=== PATIENT | female | born 1960 | race African-American/Black ===

== ENCOUNTER 2021-06-14 12:10 | Emergency (ER) | payer OTHER ==
[2021-06-14] MEDS ORDERED: IBUPROFEN 400 MG TABLET (FP) PO ONE ×2 (12:29→12:37)
[2021-06-14] MEDS ORDERED: LIDOCAINE 5% TOPICAL PATCH TP ONE (12:29)
[2021-06-14] MEDS ORDERED: LIDOCAINE 5% TOPICAL PATCH ONE (12:37)
[2021-06-14 12:39] VITALS: BP 154/85; PULSE 85; TEMP 99; BMI 27.1
[2021-06-14] MEDS ORDERED: LIDOCAINE PATCH REMOVAL MC SCH (22:00)
== END 2021-06-14 12:45 | disposition home or self-care (01) ==
LOC: FER 12:10
DX: M54.50 Low back pain, unspecified (principal)
CPT/HCPCS: 99283-25

== ENCOUNTER 2021-09-07 08:20 | Emergency (ER) | payer OTHER ==
[2021-09-07] MEDS ORDERED: ALBUTEROL SO4 2.5/IPRATROPIUM 0.5 INH SOL 3 ML VIAL.NEB. NEB SCH (08:45)
[2021-09-07 08:51] VITALS: BP 184/84; PULSE 88; TEMP 98.8; BMI 28.3
[2021-09-07] MEDS ORDERED: predniSONE 20 MG TABLET (UD) PO ONE (09:47)
[2021-09-07] MEDS ORDERED: ALBUTEROL SO4 2.5/IPRATROPIUM 0.5 INH SOL 3 ML VIAL.NEB. NEB ONE ×2 (09:56→10:16)
[2021-09-07] MEDS ORDERED: predniSONE 20 MG TABLET (UD) ONE (09:56)
[2021-09-08 15:08] LABS: SARS-CoV-2 NAA Not Detected (Not Detected)
== END 2021-09-07 11:21 | disposition home or self-care (01) ==
LOC: FER 08:20
PROC: 3E0F7GC Introduction of Other Therapeutic Substance into Respiratory Tract, Via Natural or Artificial Opening (ICD-10-PCS; principal; 2021-09-07)
DX: J45.21 Mild intermittent asthma with (acute) exacerbation (principal)
CPT/HCPCS: 93005; 99284-25; C9803-CS; U0003; U0005